=== PATIENT | male | born 1955 | race Caucasian/White ===

== ENCOUNTER 2018-06-29 14:08 | Outpatient (CLI) | payer OTHER ==
--- NOTE | 2018-06-29 16:15 | RAD ---
CERVICAL SPINE NINE VIEWS: 06/29/2018 HISTORY: Cervical disk herniation. Disk bulge. Migraine headaches. FINDINGS: The lateral neutral radiograph demonstrates disk space narrowing, degenerative endplate change, and a nterior osteophyte formation at C5-C6 and C6-C7. There is prominent degenerative change at the atlan toaxial interspace. No anterolisthesis or retrolisthesis is noted on neutral imaging. With flexion, there is anterolisthesis at C4-C5, measuring 4 mm. This is not seen on the extension views. No pre vertebral soft tissue swelling noted. Multilevel bilateral facet and uncovertebral osteophyte formation noted. There is osteophyte encroac hment on the neural foramina on the right, at C3-C4, C4-C5, and C6-C7 and on the left at C4-C5 and C6 -C7. Anterior imaging demonstrates significant facet hypertrophy on the right at C4-C5. Open-mouth odontoid view demonstrates a normal appearing dens and C1-C2 articulation. No acute osseous abnormal ity. IMPRESSION: 1. Multilevel cervical spine degenerative change. 2. Anterolisthesis at C4-C5 as above. POS: [facility]
== END 2018-06-29 14:09 | disposition home or self-care (01) ==
LOC: BICRAD 14:08
PROVIDERS: ATTEND Anesthesiology Pain Medicine
DX: M50.20 Other cervical disc displacement, unspecified cervical region (principal); M47.812 Spondylosis without myelopathy or radiculopathy, cervical region; M43.12 Spondylolisthesis, cervical region
CPT/HCPCS: 72052

== ENCOUNTER 2018-11-24 08:00 | Inpatient (IN) | payer OTHER ==
[2018-11-25 11:08] VITALS: BMI 28.5
[2018-11-26] MEDS ORDERED: Sodium Chloride 0.9% 10 ML ONE (06:26)
[2018-11-26] MEDS ORDERED: Bacitracin Zinc Ointment 30 gm TUBE ONE (06:26)
[2018-11-26] MEDS ORDERED: Thrombin 5000 UNITS/5 ML VIAL ONE (06:26)
[2018-11-26] MEDS ORDERED: Fentanyl 250 MCG/5 ML VIAL ONE (06:45)
[2018-11-26] MEDS ORDERED: Fentanyl 100 MCG/2 ML VIAL ONE ×4 (06:49→13:43)
[2018-11-26] MEDS ORDERED: Albumin 5% 500 ML ONE (07:16)
[2018-11-26] MEDS ORDERED: Meperidine HCl/PF 25 MG/ML VIAL SLOW IVP PRN (10:11)
[2018-11-26] MEDS ORDERED: Ondansetron HCl/PF 4 MG/2 ML Vial IVP PRN (10:11)
[2018-11-26] MEDS ORDERED: PACU-Morphine 4MG/ML VIAL SLOW IVP PRN (10:11)
[2018-11-26] MEDS ORDERED: Morphine Sulfate 2 MG/ML SYRINGE SLOW IVP PRN (10:11)
[2018-11-26] MEDS ORDERED: HYDROmorphone 2 MG/ML VIAL SLOW IVP PRN (10:11)
[2018-11-26] MEDS ORDERED: Promethazine HCl 25 MG/ML VIAL SLOW IVP PRN (10:11)
[2018-11-26] MEDS ORDERED: Promethazine HCl 25 MG/ML VIAL IM PRN (10:11)
[2018-11-26] MEDS ORDERED: Promethazine HCl 25 MG/ML VIAL IVPB PRN (10:54)
[2018-11-26] MEDS ORDERED: Milk Of Magnesia 30 ML UDCUP PO PRN (10:54)
[2018-11-26] MEDS ORDERED: tiZANidine HCl 4 MG TAB PO PRN (10:54)
[2018-11-26] MEDS ORDERED: Bisacodyl 10 MG SUPP PR PRN (10:54)
[2018-11-26] MEDS ORDERED: Mag-Al 1200 mg/1200 mg/30 ML UDCUP PO PRN (10:54)
[2018-11-26] MEDS ORDERED: Gabapentin 300 MG CAP PO PRN (10:56)
[2018-11-26] MEDS ORDERED: Fleet Enema 133 ML BOT PR PRN (11:00)
[2018-11-26] MEDS ORDERED: HYDROmorphone 2 MG/ML VIAL ONE (12:02)
[2018-11-26] MEDS ORDERED: PHENYLEPHRINE-NS 100 MCG/ML 10 ML SYRINGE ONE (15:00)
[2018-11-26] MEDS ORDERED: Lidocaine 1% PF 5 ML VIAL ONE (15:00)
[2018-11-26] MEDS ORDERED: Glycopyrrolate 0.2 MG/ML 5 ML SYRINGE ONE (15:00)
[2018-11-26] MEDS ORDERED: Rocuronium Bromide 10 MG/ML (10ML VIAL) ONE (15:00)
[2018-11-26] MEDS ORDERED: Ondansetron PF 4 MG/2 ML Vial ONE (15:00)
[2018-11-26] MEDS ORDERED: PROPOFOL 200 MG/20 ML VIAL ONE (15:00)
[2018-11-26] MEDS ORDERED: Dexamethasone 20 MG/5 ML VIAL ONE (15:00)
[2018-11-26] MEDS: Sodium Chloride 0.9% 1,000 ML IV SCH ×2 (16:05→16:32)
[2018-11-26] MEDS: CEFAZOLIN 2 GM in Premix Bag 1 BAG IVPB SCH (16:32)
[2018-11-26] MEDS: HYDROcodone/Acetaminophen 7.5/325 mg Tablet PO PRN (17:12)
[2018-11-26] MEDS: Morphine 2 MG/ML SYRINGE SLOW IVP PRN ×2 (18:21→19:35)
[2018-11-26] MEDS ORDERED: Promethazine HCl 12.5 MG in Sodium Chloride 0.9% 50 ML IVPB PRN (18:37)
[2018-11-26] MEDS ORDERED: Ondansetron PF 4 MG/2 ML Vial SLOW IVP PRN (18:46)
[2018-11-26] MEDS: Methocarbamol 500 MG TAB PO PRN (19:35)
[2018-11-26] MEDS: Gabapentin 300 MG CAP PO SCH (19:35)
[2018-11-27] MEDS: CEFAZOLIN 2 GM in Premix Bag 1 BAG IVPB SCH ×4 (00:11→23:31)
[2018-11-27] MEDS: Acetaminophen/Codeine 30-300mg Tablet PO PRN ×2 (00:11→13:02)
[2018-11-27] MEDS: Meloxicam 7.5 MG TAB PO PRN ×2 (00:12→17:40)
[2018-11-27] MEDS: Sodium Chloride 0.9% 1,000 ML IV SCH ×2 (00:12→16:02)
[2018-11-27] MEDS: HYDROcodone/Acetaminophen 7.5/325 mg Tablet PO PRN (03:16)
[2018-11-27] MEDS: Gabapentin 300 MG CAP PO SCH ×2 (08:38→20:34)
--- NOTE | 2018-11-27 10:56 | PRG ---
DATE OF SERVICE: 11/27/2018 Mr. Jha is postoperative day 1 from C5 to T1 ACDF. 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 His JAYASHREE drain output is 40 mL. We will leave this in place and give him another day in the hospital as I think he will need it for recovery. I am very pleased; however, at this point with how he is doing. Job ID: [id number]
[2018-11-27] MEDS: Methocarbamol 500 MG TAB PO PRN (17:57)
[2018-11-27] MEDS: Acetaminophen 325 MG TAB PO PRN (23:37)
[2018-11-28] MEDS: Sodium Chloride 0.9% 1,000 ML IV SCH ×2 (06:25→18:40)
[2018-11-28] MEDS: Gabapentin 300 MG CAP PO SCH ×2 (09:05→21:05)
[2018-11-28] MEDS: CEFAZOLIN 2 GM in Premix Bag 1 BAG IVPB SCH ×3 (09:05→23:38)
[2018-11-28] MEDS: Meloxicam 7.5 MG TAB PO PRN ×2 (09:05→21:05)
[2018-11-28] MEDS: Methocarbamol 500 MG TAB PO PRN ×2 (09:44→23:34)
--- NOTE | 2018-11-28 12:33 | PRG ---
DATE OF SERVICE: 11/28/2018 Mr. Jha is postoperative day 2 from C5-T1 anterior cervical diskectomy and fusion. He is doing well from a neurosurgical standpoint, is mobilizing with good strength. The biggest issue has been dysphonia this morning, which is mild but moderate dysphagia. He would like to have something a bit different than clears and we will allow him to have soft eggs this morning. We will leave the drain in place as he put out 30 mL over the last 24 hours with likely plan for removal of the drain tomorrow and likely dismissal tomorrow. Job ID: [id number]
[2018-11-28] MEDS: HYDROcodone/Acetaminophen 7.5/325 mg Tablet PO PRN (15:50)
[2018-11-28] MEDS: Acetaminophen 325 MG TAB PO PRN (18:38)
[2018-11-28] MEDS: traMADol HCl 50 MG TAB PO PRN (18:38)
[2018-11-29] MEDS: Sodium Chloride 0.9% 1,000 ML IV SCH (05:30)
[2018-11-29] MEDS: traMADol HCl 50 MG TAB PO PRN (07:18)
[2018-11-29] MEDS: Acetaminophen 325 MG TAB PO PRN (07:18)
[2018-11-29] MEDS: Gabapentin 300 MG CAP PO SCH (08:39)
[2018-11-29] MEDS: CEFAZOLIN 2 GM in Premix Bag 1 BAG IVPB SCH (08:40)
[2018-11-29 12:39] VITALS: BP 119/79; TEMP 98
--- NOTE | 2018-11-29 17:58 | DIS ---
DATE OF ADMISSION: 11/26/2018 DATE OF DISCHARGE: 11/29/2018 This is Matheus Reynolds PA-C dictating a report for Nathanael Renee MD. DISCHARGE DIAGNOSES: Cervical stenosis with radiculopathy. HOSPITAL COURSE: Mr. Jha was admitted on 11/26/2018 to undergo C5 to T1 ACDF with Dr. Renee. A drain was placed intraoperatively, but otherwise the patient's surgery was without complications. Due to swallowing difficulties and pain control, the patient required several overnight stays. At the time of discharge, his drain output was satisfactory and removed. The patient had some continued bifrontal headaches, but I let him know that these will improve with time. 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 He has not felt this strong in his hands for the past several decades. He has complete resolution of bilateral upper extremity pain and numbness and tingling he had. Again, he met criteria for discharge and was neurologically intact. Appropriate patient education and outpatient followups were provided to the patient. He certainly understood to call the office with questions or concerns prior to his next followup appointment, but otherwise he was doing very well and pleased with his outcome postoperatively. Job ID: [id number]
--- NOTE | 2018-11-30 13:23 | OP ---
DATE OF PROCEDURE: 11/26/2018 PREPROCEDURE DIAGNOSES: Cervical stenosis with myelopathy and radiculopathy. POSTPROCEDURE DIAGNOSES: Cervical stenosis with myelopathy and radiculopathy. PROCEDURES PERFORMED: 1. C5-C6, C6-C7, and C7-T1 anterior cervical diskectomy for decompression of spinal cord nerve roots with placement of interbody spacer at C5-C6, C6-C7, and C7-T1 packed with local bone autograft obtained with same incision and allograft for arthrodesis. 2. Use of operative microscope for microdissection. 3. Anterior cervical plate and screw fixation at C5, C6, C7, and T1. DESCRIPTION OF PROCEDURE: After informed consent was obtained from the patient, the patient was brought to the OR. Proper patient, pause, and identification were carried out. He was placed under excellent general endotracheal anesthesia and positioned supine on the OR table. All appropriate points were padded. We identified the right anterior oblique ginny to allow for approach to the C5, C6, C7, and T1 segments. This area was sterilely cleansed, prepared, and draped. Proper patient, pause, and identification were carried out. The wound was then opened with combination of sharp, monopolar, and blunt dissection, proceeded lateral to the tracheoesophageal bundle and medial to the right carotid sheath. We identified the prevertebral layer of deep cervical fascia. This was swept laterally. We identified the C5 and C6 segments. Distraction occurred and retraction as well. Microscope was brought in for microdissection, and diskectomy at C5-C6 was performed with excellent decompression of the common dural tube in the C6 nerve roots. We then did the same procedure at C6-C7 and at C7-T1 and at each of these segments, interbody spacers were placed following the diskectomy for decompression of the neural elements with preparation of the endplates for arthrodesis with a spacer packed with graft at C5-C6, C6-C7, and C7-T1 and copious irrigation occurred. The microscope was removed. Anterior cervical plate and screw fixation at C5, C6, C7, and T1 then occurred. The wound was then closed in anatomic layers over drain. The patient emerged from anesthesia. Meticulous hemostasis and copious irrigation occurred. Job ID: [id number]
== END 2018-11-29 13:50 | disposition home or self-care (01) | DRG 472 ==
LOC: SURG A 11-26 05:54 → SJJU 11-26 14:39
PROVIDERS: ADMIT Surgery; ATTEND Surgery
PROC: 0RG2070 Fusion of 2 or more Cervical Vertebral Joints with Autologous Tissue Substitute, Anterior Approach, Anterior Column, Open Approach (ICD-10-PCS; principal; 2018-11-26)
PROC: 0RG4070 Fusion of Cervicothoracic Vertebral Joint with Autologous Tissue Substitute, Anterior Approach, Anterior Column, Open Approach (ICD-10-PCS; 2018-11-26)
PROC: 0RB30ZZ Excision of Cervical Vertebral Disc, Open Approach (ICD-10-PCS; 2018-11-26)
PROC: 0RB50ZZ Excision of Cervicothoracic Vertebral Disc, Open Approach (ICD-10-PCS; 2018-11-26)
DX: M48.02 Spinal stenosis, cervical region (principal); M47.12 Other spondylosis with myelopathy, cervical region; F32.9 Major depressive disorder, single episode, unspecified; G43.909 Migraine, unspecified, not intractable, without status migrainosus; M54.12 Radiculopathy, cervical region; R49.0 Dysphonia; F17.200 Nicotine dependence, unspecified, uncomplicated; R13.10 Dysphagia, unspecified; Z98.890 Other specified postprocedural states
CPT/HCPCS: 76000; 80048; 85027; 85610; 85730; 93005; 93010; C1713; C1776; J0131; J0690; J1100; J1170; J2001; J2270; J2405; J2550; J2704; J3010; J3370; J3490; J7050; P9045

== ENCOUNTER 2018-11-25 02:28 | Outpatient (CLI) | payer OTHER ==
[2018-11-25 12:40] LABS: Hemoglobin 16.6 g/dL (14.0-18.0); Mean Corpuscular HGB CONC 33.1 g/dL (32.0-36.0); Mean Corpuscular Hemoglobin 28.9 pg (27.0-31.0); Mean Corpuscular Volume 87.3 fL (78.0-98.0); Platelet Count 287 thou/uL (130-400); RBC Distribution Width 12.9 % (11.5-14.5); Red Blood Cell (RBC) Count 5.75 mill/uL (4.70-6.10); White Blood Cell (WBC) Count 4.8 thou/uL (4.8-10.8)
[2018-11-25 12:46] LABS: INR-International Normal Ratio 1.1; Prothrombin Time 14.2 SEC (12.0-14.7)
[2018-11-25 12:47] LABS: PTT 34.2 SEC (22.9-36.1)
[2018-11-25 13:03] LABS: Anion Gap 13 mmol/L (10-20); BUN (Urea Nitrogen) 14 mg/dL (8.4-25.7); Calc. Creatinine Clearance 0 mL/min (70-130); Calcium 9.4 mg/dL (7.8-10.44); Carbon Dioxide 23 mmol/L (23-31); Chloride 109 mmol/L (98-107); Estimated GFR-MDRD 76; Glucose 96 mg/dL (80-115); Sodium 141 mmol/L (136-145)
== END 2018-11-25 02:29 | disposition home or self-care (01) ==
LOC: LABBT 02:28
PROVIDERS: ATTEND Surgery
DX: Z01.818 Encounter for other preprocedural examination (principal); M47.12 Other spondylosis with myelopathy, cervical region; M47.22 Other spondylosis with radiculopathy, cervical region
CPT/HCPCS: 80048; 85027; 85610; 85730; 93005; 93010

== ENCOUNTER 2019-01-06 08:34 | Outpatient (CLI) | payer OTHER ==
--- NOTE | 2019-01-06 08:55 | RAD ---
5 views of the cervical spine: 01/06/2019 COMPARISON: 06/29/2018 HISTORY: Neck surgery 5 weeks ago, headaches FINDINGS: Anterior discectomy and fusion hardware is present at C5-C6/C6-7/C7-T1 levels. No significa nt prevertebral soft tissue swelling. No evidence for hardware failure. There is moderate degenerative change at the atlantoaxial interspace. There is mild disc space narrowing and anterior o steophyte formation at C2-3 and C4-5. The open-mouth odontoid view demonstrates a normal-appearing C1-2 articulation. The Fuchs view demons trates a normal-appearing dens. No acute osseous abnormality. IMPRESSION: Postoperative and degenerative changes of the cervical spine as detailed above.
== END 2019-01-06 08:35 | disposition home or self-care (01) ==
LOC: TBSIIMAG 08:34
PROVIDERS: ATTEND Surgery
DX: M48.02 Spinal stenosis, cervical region (principal); M47.22 Other spondylosis with radiculopathy, cervical region; M54.2 Cervicalgia; Z98.890 Other specified postprocedural states
CPT/HCPCS: 72040

== ENCOUNTER 2019-08-11 10:22 | Outpatient (CLI) | payer OTHER ==
--- NOTE | 2019-08-11 11:22 | RAD ---
4 views lumbar spine: 08/11/2019 COMPARISON: None HISTORY: Radiculopathy FINDINGS: 5 lumbar type vertebral bodies are present with intact pedicles on frontal imaging. Neutral , flexion, and extension lateral imaging demonstrates no significant anterolisthesis or retrolisthesis. Vertebral body height and alignment appears normal. Mild lower lumbar spine facet hyp ertrophy. No acute osseous abnormality. IMPRESSION: No acute findings.
--- NOTE | 2019-08-11 11:56 | MRI ---
MR the lumbar spine without contrast: 08/11/2019 History: Lumbar radiculopathy COMPARISON: None. TECHNIQUE: Multiplanar multisequence MR images were obtained of lumbar spine without IV contrast FINDINGS: On the basis of 5 lumbar type vertebral bodies, conus medullaris terminates at [id number] level. Sagittal STIR imaging demonstrates no focal area of osseous marrow edema. T11-12: There is disc space narrowing with mild anterior osteophyte formation. There is a small left paracentral/left foraminal disc protrusion. No significant central canal stenosis. Mild left neural foraminal stenosis. No significant right neural foraminal stenosis. T12-L1:Intervertebral disc height and signal intensity within normal limits. No significant central c anal or neural foraminal stenosis. L1-2:There is disc space narrowing with disc desiccation. There is a central annular tear. No signifi cant central canal or neural foraminal stenosis. L2-3:There is disc space narrowing and disc desiccation with a central annular tear. No central canal or neural foraminal stenosis. There is a small disc herniation in the post foraminal region on the left. Post foraminal disc herniation on the left abuts the medial aspect of the L2 nerve root on the left. L3-4:Mild bilateral facet hypertrophy. Disc space narrowing with disc desiccation and mild disc bulge . No central canal stenosis. No significant neural foraminal stenosis. L4-5:Mild bilateral facet hypertrophy, left greater than right. There is disc space narrowing and dis c desiccation. There is an annular tear in the right paracentral region. In addition, there is an annular tear in the foraminal region on the left with a small associated left post foraminal disc pro trusion abutting the medial aspect of the left L4 nerve root. L5-S1:Intervertebral disc height and signal intensity within normal limits. No significant central ca nal or neural foraminal stenosis. Image retroperitoneal structures demonstrateno acute findings. IMPRESSION: Lumbar spine degenerative change as described above.
== END 2019-08-11 10:23 | disposition home or self-care (01) ==
LOC: TBSIIMAG 10:22
PROVIDERS: ATTEND Surgery
DX: M47.26 Other spondylosis with radiculopathy, lumbar region (principal)
CPT/HCPCS: 72120; 72148

== ENCOUNTER 2019-08-23 14:47 | Outpatient (CLI) | payer OTHER ==
--- NOTE | 2019-08-23 15:26 | RAD ---
EXAM: 3 views of the cervical spine HISTORY: Neck pain and headache for years COMPARISON: 01/06/2019 FINDINGS: AP, lateral, and open mouth odontoid views of the cervical spine shows normal height and al ignment of the vertebral bodies and intervertebral discs without fracture or subluxation. The patient is status post anterior fusion of C5-T1 with an anterior plate and screws. Disc spacers are s een in the intervening disc spaces. No significant residual degenerative changes are seen. No prevertebral soft tissue swelling is seen. IMPRESSION: Postsurgical changes of the cervical spine without evidence of complication.
--- NOTE | 2019-08-23 15:52 | CT ---
CT CERVICAL SPINE WITHOUT CONTRAST: Indications: Cervical radiculopathy. FINDINGS: Anterior plate and screws transfix C5, C6, C7, and T1 levels. Interbody implants at these levels. Cer vical vertebrae maintain height and alignment. Posterior spondylosis is prominent at C5-6, C6-7 and C 7-T1. Findings at these levels are described below. C2-3: Mild disc bulge abuts the anterior cord slightly to the left of midline. C3-4: Disc bulge and spondylosis effaces the anterior subarachnoid space and abuts the anterior cord. Mild foraminal narrowing due to uncinate hypertrophy. C4-5: Mild disc bulge and spondylosis flatten the thecal sac and mildly efface the anterior subarachn oid space. Right foraminal narrowing due to facet and uncinate hypertrophy. C5-6: Prominent posterior spondylosis impinges on the anterior cord. Mild foraminal narrowing on the left. C6-7: Posterior spondylosis impinges on the anterior cord. Mild bilateral foraminal narrowing due to uncinate hypertrophy. C7-T1: Posterior spondylosis abuts the anterior cord. No significant foraminal stenosis. IMPRESSION: Post-operative and degenerative changes of the lower cervical spine as described. POS: [facility]
--- NOTE | 2019-08-23 16:28 | MRI ---
MRI CERVICAL SPINE WITHOUT CONTRAST: Indications: Neck pain. Correlation: CT cervical spine performed earlier today. FINDINGS: Cervical vertebrae maintain height and alignment. Post-operative and degenerative changes of the lowe r cervical spine noted. Anterior plate and screws are present at C5, C6, C7 and T1 levels. Resulting artifact is noted on MRI. Posterior disc bulge and spondylosis at C2-3 abut the anterior cord paracentrally on the left. At C3-4 posterior disc bulge and spondylosis efface the anterior subarachnoid space. At C4-5 posterior disc bulge and spondylosis efface the anterior subarachnoid space and abut the ante rior cord. At C5-6 disc bulge and spondylosis abutt the anterior cord. At C6-7 mild disc bulge with spondylosis efface the anterior subarachnoid space. At C7-T1 spondylosis efface the anterior subarachnoid space. Foraminal stenosis is best evaluated on CT cervical spine. Cervical cord signal appears preserved. No evidence of myelomalacia identified. IMPRESSION: Post-operative and degenerative change of the cervical spine as noted above. POS: [facility]
== END 2019-08-23 14:48 | disposition home or self-care (01) ==
LOC: TBSIIMAG 14:47
PROVIDERS: ATTEND Surgery
DX: M48.02 Spinal stenosis, cervical region (principal); M47.22 Other spondylosis with radiculopathy, cervical region; Z98.1 Arthrodesis status
CPT/HCPCS: 72040; 72125; 72141

== ENCOUNTER 2020-01-17 10:21 | Outpatient (CLI) | payer OTHER ==
--- NOTE | 2020-01-17 12:00 | MRI ---
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 COMPARISON: None TECHNIQUE: Multiplanar, multisequence MRI of the brain obtained pre and post IV injection of gadolinium based co ntrast agent. FINDINGS: The ventricles are normal in size and configuration. There is no midline shift or any other evidence of mass effect. There is no extra-axial fluid collection. There is an approximately 0.6 x 0.5 x 0.9 cm small focal lesion in the right parietal centrum semiovale, abutting the superior edge of the post erior aspect of the body of the right lateral ventricle. This has a complete hemosiderin ring, and popcorn appearance of heterogeneously T2 hyperintense internal contents. Minimal faint patch of intra -axial enhancement along the superior margin of this, is consistent with associated tiny capillary telangiectasia. No definite DVA identified associated with this. There is no other intra-axial signal abnormality, other abnormal enhancement, mass, recent hemorrhage, or restricted diffusion. 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 2) otherwise negative
[2020-01-17] MEDS ORDERED: Magnevist 469MG/ML 20 ML VIAL ONE (14:03)
== END 2020-01-17 10:22 | disposition home or self-care (01) ==
LOC: TBSIIMAG 10:21
PROVIDERS: ATTEND Internal Medicine
DX: Q04.9 Congenital malformation of brain, unspecified (principal)
CPT/HCPCS: 70553; 82565; A9579

== ENCOUNTER 2020-05-19 20:29 | Emergency (ER) | payer OTHER ==
[2020-05-19 21:18] LABS: #Basophils 0.1 thou/uL (0.0-0.2); #Eosinphils 0.1 thou/uL (0.0-0.7); #Lymphocytes 1.7 thou/uL (1.20-3.40); #Monocytes 0.6 thou/uL (0.11-0.59); #Neutrophils 2.2 thou/uL (1.40-6.50); %Basophils 1.5 % (0.0-1.0); %Lymphocytes 36.4 % (21.0-51.0); %Monocytes 13.3 % (0.0-10.0); %Neutrophils 46.8 % (42.0-75.0); Hemoglobin 17.3 g/dL (14.0-18.0); Mean Corpuscular HGB CONC 34.2 g/dL (32.0-36.0); Mean Corpuscular Hemoglobin 30.8 pg (27.0-31.0); Mean Platelet Volume 8.9 fL (7.4-10.4); Platelet Count 266 thou/uL (130-400); RBC Distribution Width 12.8 % (11.5-14.5); Red Blood Cell (RBC) Count 5.63 mill/uL (4.70-6.10); White Blood Cell (WBC) Count 4.7 thou/uL (4.8-10.8)
--- NOTE | 2020-05-19 21:23 | RAD ---
PA AND LATERAL CHEST: 05/19/20 HISTORY: Chest pain. Heart size and mediastinum are within normal limits. The lungs are clear of infiltrates. Postop hernandez es of the cervical spine are noted. IMPRESSION: No active intrathoracic disease. POS: [facility]
[2020-05-19 22:16] LABS: Albumin 3.9 g/dL (3.4-4.8)
[2020-05-19 22:17] LABS: Calcium 8.7 mg/dL (7.8-10.44); Chloride 109 mmol/L (98-107); Potassium 4.1 mmol/L (3.5-5.1); Sodium 141 mmol/L (136-145)
[2020-05-19 22:18] LABS: Globulin 2.8 g/dL (2.4-3.5); Glucose 112 mg/dL (80-115); Protein, Total 6.7 g/dL (5.8-8.1)
[2020-05-19 22:19] LABS: Anion Gap 11 mmol/L (10-20); Carbon Dioxide 25 mmol/L (23-31)
[2020-05-19 22:20] LABS: Bilirubin, Total 0.4 mg/dL (0.2-1.2)
[2020-05-19 22:21] LABS: Alkaline Phosphatase 69 U/L (40-110); Calc. Creatinine Clearance 0 mL/min (70-130); Estimated GFR-MDRD 75
[2020-05-19 22:22] LABS: BUN (Urea Nitrogen) 12 mg/dL (8.4-25.7)
[2020-05-19 22:23] LABS: AST (SGOT) 18 U/L (5-34)
[2020-05-19 22:24] LABS: ALT (SGPT) 23 U/L (8-55)
[2020-05-20 00:58] LABS: Troponin I Less than 0.010 ng/mL (< 0.028)
== END 2020-05-20 01:25 | disposition home or self-care (01) ==
LOC: ERS 20:29
DX: R07.89 Other chest pain (principal); E78.5 Hyperlipidemia, unspecified; G43.909 Migraine, unspecified, not intractable, without status migrainosus; Z79.899 Other long term (current) drug therapy
CPT/HCPCS: 36415; 71046; 80053; 84484; 85025; 93005